=== PATIENT | male | born 1990 | race Caucasian/White ===

== ENCOUNTER 2019-02-18 22:26 | Emergency (ER) | payer OTHER ==
--- NOTE | 2019-02-18 22:48 | ER Document Report ---
ED Psych Disorder / Suicide - General Chief Complaint: Psych Problem Stated Complaint: IVC Time Seen by Provider: 02/18/19 22:35 Notes: Patient is a 28-year-old male that comes emergency department with [facility] escort on IVC paperwork. Reportedly patient was drinking, became intoxicated, was talking about being depressed and suicidal and about his recent failed relationship and a friend became concerned with his behavior and called law enforcement, nurse reports law enforcement stated that they took him to his house to grab a bag and on his bed he grabbed a gun and stated he 'didn't know what to do', the gun was not loaded. Patient was then brought to the emergency department on IVC paperwork. Patient denies being suicidal, he denies being homicidal, he states that he "just got involved in a huge misunderstanding tonight". He states that he would like to drink some water, sober up, and go home as soon as possible. He states he is happy to cooperate with whenever we ask. He denies history of mental illness, history of suicide, any daily prescribed medications, or any medical history. He states he smokes, drinks occasionally, denies recreational drugs. - Related Data Allergies/Adverse Reactions: No Known Allergies Allergy (Unverified 02/18/19 23:36) Past Medical History - General Information source: Patient - Social History Smoking Status: Never Smoker Frequency of alcohol use: Social Drug Abuse: None Lives with: Alone Family History: Reviewed & Not Pertinent - Medical History Medical History: Negative - Immunizations Immunizations up to date: Yes Hx Diphtheria, Pertussis, Tetanus Vaccination: Yes Review of Systems - Review of Systems Constitutional: See HPI EENT: No symptoms reported Cardiovascular: No symptoms reported Respiratory: No symptoms reported Gastrointestinal: No symptoms reported Genitourinary: No symptoms reported Male Genitourinary: No symptoms reported Musculoskeletal: No symptoms reported Skin: No symptoms reported Hematologic/Lymphatic: No symptoms reported Neurological/Psychological: See HPI Physical Exam - Vital signs Vitals: Temp Pulse Resp BP Pulse Ox 98.0 F 74 16 121/65 98 02/18/19 22:45 02/18/19 22:45 02/18/19 22:45 02/18/19 22:45 02/18/19 22:45 - Notes Notes: GENERAL: Alert, slurring some words, somewhat unsteady on his feet HEAD: Normocephalic, atraumatic. EYES: Pupils equal, round, and reactive to light. Extraocular movements intact. ENT: Oral mucosa moist, tongue midline. Oropharynx unremarkable. Airway patent. LUNGS: Clear to auscultation bilaterally, no wheezes, rales, or rhonchi. No respiratory distress. HEART: Regular rate and rhythm. No murmur ABDOMEN: Soft, non-tender. Non-distended. Bowel sounds present in all 4 quadrants. GENITOURINARY: Deferred EXTREMITIES: Moves all 4 extremities spontaneously. No edema, normal radial and dorsalis pedis pulses bilaterally. No cyanosis. BACK: no cervical, thoracic, lumbar midline tenderness. No saddle anesthesia, normal distal neurovascular exam. Moves all extremities in full range of motion. NEUROLOGICAL: Alert and oriented x3. Occasional slurred speech and mild ataxia. Cranial nerves II through XII grossly intact. PSYCH: Restless, poor eye contact SKIN: Warm, dry, normal turgor. No rashes or lesions noted. Course - Re-evaluation Re-evalutation: Initially patient was agitated however he became calm, cooperative, states he will cooperate with us in any way that he can. He denies SI or HI. He is already on IVC paperwork and he will be medically cleared pending mental health evaluation. 02/18/19 23:39 Patient has changed his approach to the situation. He is now walking around, getting in the face of staff, refusing work-up, demanding to be discharged, attempting to leave. In addition to this patient is not clinically sober, he is unsteady on his feet and intermittently stumbles. When I asked patient to tell me what's going on he simple stated "fuck you". After discussing with patient patient did agree to medication to relax, he was given IM Phenergan and IM Benadryl. After this we were able to obtain work-up. I was stuck in a patient's room during procedures for a very long time, after I came out Dr. 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 He spoke with Dr. Cornejo who will be accepting the patient for transfer. CBC shows borderline leukocytosis which is nonspecific, vital signs unremarkable, chemistry unremarkable, alcohol 148, EKG unremarkable. Regardless of urine patient will be medically cleared. I discussed with patient, he states agreement with the transfer plan. 02/19/19 03:00 Transport team is almost here, patient was reevaluated at bedside, patient is sleeping but easily aroused with no current complaints, stable for transport. - Vital Signs Vital signs: Temp Pulse Resp BP Pulse Ox 97.6 F 84 18 113/49 L 95 02/19/19 02:50 02/19/19 02:50 02/19/19 02:50 02/19/19 02:50 02/19/19 02:50 - Laboratory Result Diagrams: 02/19/19 01:16 02/19/19 01:16 Laboratory results interpreted by me: 02/19/19 02/19/19 01:16 01:16 WBC 14.1 H Absolute Neuts (auto) 10.3 H Salicylates < 1.0 L Acetaminophen < 10 L - EKG Interpretation by Me Additional EKG results interpreted by me: EKG shows sinus rhythm at a rate of 66, QTC of 407, normal axis. Somewhat peaked T waves and large amplitude on EKG but patient is thin and fit and I suspect this is related. No T wave inversions or ST segment changes in consecutive leads. Discharge - Discharge Clinical Impression: Suicidal ideations Depression Qualifiers: Depression Type: unspecified Qualified Code(s): F32.9 - Major depressive disorder, single episode, unspecified Condition: Stable Disposition: [facility]
[2019-02-18] MEDS ORDERED: PROMETHAZINE HCL INJ 25 MG/1 ML VIAL IM ONE (23:09)
[2019-02-18] MEDS ORDERED: DIPHENHYDRAMINE HCL 50 MG/ML VIAL IM ONE (23:37)
[2019-02-19 01:25] LABS: ABSOLUTE BASOPHILS # (AUTO) 0.1 10^3/uL (0.0-0.2); ABSOLUTE EOSINOPHILS # (AUTO) 0.2 10^3/uL (0.0-0.6); ABSOLUTE LYMPHOCYTES (AUTO) 2.6 10^3/uL (0.5-4.7); ABSOLUTE MONOCYTES (AUTO) 0.8 10^3/uL (0.1-1.4); ABSOLUTE NEUT (AUTO) 10.3 10^3/uL (1.7-8.2); BASOPHILS % (AUTO) 0.6 % (0-2); EOSINOPHILS % (AUTO) 1.8 % (0-6); HEMATOCRIT 46.7 % (37.9-51.0); HEMOGLOBIN 16.1 g/dL (13.5-17.0); LYMPHOCYTES % (AUTO) 18.8 % (13-45); MEAN CORPUSCULAR HEMOGLOBIN 32.4 pg (27.0-33.4); MEAN CORPUSCULAR HGB CONC 34.3 g/dL (32.0-36.0); MEAN CORPUSCULAR VOLUME 94 fl (80-97); MONOCYTES % (AUTO) 5.7 % (3-13); PLATELET COUNT 313 10^3/uL (150-450); RED BLOOD COUNT 4.96 10^6/uL (4.35-5.55); RED CELL DISTRIBUTION WIDTH 12.9 % (11.5-14.0); SEGMENTED NEUTROPHILS % (AUTO) 73.1 % (42-78); TOTAL CELLS COUNTED % (AUTO) 100 %; WHITE BLOOD COUNT 14.1 10^3/uL (4.0-10.5)
[2019-02-19 01:55] LABS: ALBUMIN 4.4 g/dL (3.5-5.0); ALCOHOL 189 mg/dL (NONE DETECTED); ALKALINE PHOSPHATASE 80 U/L (38-126); ANION GAP 16 (5-19); ASPARTATE AMINO TRANSFERASE 46 U/L (17-59); BILIRUBIN,DIRECT 0.1 mg/dL (0.0-0.4); BILIRUBIN,TOTAL 0.4 mg/dL (0.2-1.3); BLOOD UREA NITROGEN 7 mg/dL (7-20); CALCIUM 8.9 mg/dL (8.4-10.2); CARBON DIOXIDE 23 mmol/L (22-30); CHLORIDE 105 mmol/L (98-107); GLUCOSE 86 mg/dL (75-110); TOTAL PROTEIN 7.5 g/dL (6.3-8.2)
[2019-02-19 01:56] LABS: ACETAMINOPHEN < 10 ug/mL (10-30); SALICYLATE < 1.0 mg/dL (2.0-20.0)
[2019-02-19 02:46] VITALS: BP 113/49
--- NOTE | 2019-02-19 16:21 | EKG REPORT ---
SEVERITY:- ABNORMAL ECG - SINUS RHYTHM PROBABLE LEFT VENTRICULAR HYPERTROPHY : Confirmed by: Chyna Gonzalez MD 19-Feb-2019 16:21:00
== END 2019-02-19 03:13 ==
LOC: ER 22:26
DX: Z04.6 Encounter for general psychiatric examination, requested by authority (principal); F32.9 Major depressive disorder, single episode, unspecified; R45.851 Suicidal ideations; F10.129 Alcohol abuse with intoxication, unspecified; Y90.6 Blood alcohol level of 120-199 mg/100 ml; R45.1 Restlessness and agitation
CPT/HCPCS: 93005; 99285; 96372; 36415; 80307 ×3; 85025; 80053; 93010; J1200; J2550